=== PATIENT | female | born 1960 | race Hispanic/Latino ===

== ENCOUNTER 2016-07-31 11:55 | Outpatient (CLI) | payer BC ==
[2016-07-31 12:03] LABS: Hematocrit 40.3 % (30.3-42.9); Hemoglobin 13.9 gm/dl (10.1-14.3); Mean Corpuscular HGB Conc 35 % (30-34); Mean Corpuscular Hemoglobin 32 pg (28-32); Mean Corpuscular Volume 93 fl (79-97); Red Blood Count 4.33 M/mm3 (3.65-5.03); Red Cell Distribution Width 12.8 % (13.2-15.2); White Blood Count 9.7 K/mm3 (4.5-11.0)
[2016-07-31 12:04] LABS: Platelet Count 216 K/mm3 (140-440)
[2016-07-31 12:20] LABS: Alanine Aminotransferase 16 units/L (7-56); Albumin 3.8 g/dL (3.9-5); Albumin/Globulin Ratio 1.5 %; Alkaline Phosphatase 85 units/L (35-129); Bilirubin,Total 0.4 mg/dL (0.1-1.2); Blood Urea Nitrogen 11 mg/dL (7-17); Calcium 8.8 mg/dL (8.4-10.2); Carbon Dioxide 25 mmol/L (22-30); Cholesterol 168 mg/dL (50-199); Glucose 94 mg/dL (65-100); HDL Cholesterol 57 mg/dL (40-59); LDL Cholesterol,Direct 90 mg/dL (50-130); Total Protein 6.4 g/dL (6.3-8.2); Triglycerides 106 mg/dL (2-149)
[2016-07-31 12:21] LABS: Anion Gap 15 mmol/L; Chloride 102.1 mmol/L (98-107); Sodium 138 mmol/L (137-145)
[2016-08-03 17:47] LABS: Vitamin D, 25-OH, Total 17 ng/mL (30-100)
== END 2016-07-31 11:56 | disposition home or self-care (01) ==
LOC: LAB 11:55
PROVIDERS: ATTEND Internal Medicine
DX: D64.9 Anemia, unspecified (principal); E55.9 Vitamin D deficiency, unspecified; E03.9 Hypothyroidism, unspecified; E78.1 Pure hyperglyceridemia
CPT/HCPCS: 36415; 80053; 80061; 82306; 82607; 82747; 83735; 84443; 85027

== ENCOUNTER 2017-07-16 19:38 | Emergency (ER) | payer BC ==
[2017-07-16 19:45] VITALS: BP 155/72
[2017-07-16] MEDS ORDERED: BOOSTRIX IM ONE (20:56)
[2017-07-16] MEDS ORDERED: TYLENOL #3 PO ONE (20:56)
[2017-07-16] MEDS ORDERED: XYLOCAINE 1% 20 mL INFILTRATI ONE (21:00)
--- NOTE | 2017-07-16 21:00 | Emergency Department Report ---
Chief Complaint: Laceration/Recheck/Suture Stated Complaint: LEFT HAND LACERATION Time Seen by Provider: 07/16/17 20:56 - HPI History of Present Illness: The patient is a 56-year-old female who presents for evaluation of laceration. The patient reports cutting her left thumb with a knife accidentally while attempting to cut a hole in a plastic container, 2-3 hours prior to arrival. She has experienced mild stinging in quality pain to the wound site since the incident, exacerbated with movement of the thumb. She is unsure of last known tetanus immunization. - Exam Vital Signs: Vital Signs 07/16/17 19:42 Temperature 98.1 F Pulse Rate 62 Respiratory 16 Rate Blood Pressure 155/72 O2 Sat by Pulse 99 Oximetry MSE screening note: Focused history and physical exam performed. Due to findings the following was ordered: ED Disposition for MSE Condition: Stable Referrals: ISAAC BAIRD MD [Primary Care Provider] - 3-5 Days
[2017-07-16] MEDS ORDERED: TRIPLE ANTIBIOTIC TP ONE ×2 (21:03→21:24)
[2017-07-16] MEDS ORDERED: XYLOCAINE 2% INFILTRATI ONE (21:03)
--- NOTE | 2017-07-16 22:00 | Emergency Department Report ---
ED Laceration HPI - HPI Chief Complaint: Laceration/Recheck/Suture Stated Complaint: LEFT HAND LACERATION Time Seen by Provider: 07/16/17 20:56 Occurred When: Today Location: Upper Extremity (left thumb distal to web space) Tetanus Status: Not up to Date Laceration Symptoms: Yes Pain, No Foreign Body Sensation, No Numbness, No Weakness Other History: 56-year-old female presents with accidental laceration to the left inner thumb region. Patient states she was cutting open a box with a kitchen knife kitchen knife slipped and lacerated her left thumb. Patient unaware of tetanus status. Laceration not currently bleeding. Visible one- inch laceration to left inner thumb region near webspace. No other injury sustained. Occurred 1 hour ago ED Review of Systems ROS: Stated complaint: LEFT HAND LACERATION Other details as noted in HPI Constitutional: denies: chills, fever Eyes: denies: eye pain, eye discharge, vision change ENT: denies: ear pain, throat pain Respiratory: denies: cough, shortness of breath, wheezing Cardiovascular: denies: chest pain, palpitations Endocrine: no symptoms reported Gastrointestinal: denies: abdominal pain, nausea, diarrhea Genitourinary: denies: urgency, dysuria, discharge Musculoskeletal: denies: back pain, joint swelling, arthralgia Skin: denies: rash, lesions Neurological: denies: headache, weakness, paresthesias Psychiatric: denies: anxiety, depression Hematological/Lymphatic: denies: easy bleeding, easy bruising ED Past Medical Hx - Past Medical History Previous Medical History?: Yes Hx Hypertension: Yes - Surgical History Past Surgical History?: Yes Hx Cholecystectomy: Yes Additional Surgical History: hysterectomy - Social History Smoking Status: Never Smoker Substance Use Type: None - Medications Home Medications: Home Medications Medication Instructions Recorded Confirmed Last Taken Type Acetaminophen/Codeine [Tylenol 1 tab PO Q6H PRN #8 tab 07/16/17 Unknown Rx /Codeine # 3 tab] Cephalexin [Keflex] 500 mg PO Q12HR #10 cap 07/16/17 Unknown Rx Ibuprofen [Motrin] 800 mg PO Q8HR PRN #20 tablet 07/16/17 Unknown Rx Laceration Physical Exam - Exam General: Vital signs noted. No distress. Alert and acting appropriately. Wound Length (cm): 2 Laceration Location: Upper Extremity (left inner thumb) Laceration Exam: Yes Normal Distal CMS (distal capillary refill less than 1 second), No Foreign Body, No Exposed Tendon, Vessel, or Nerve, No Tendon Injury ED Course Vital Signs 07/16/17 07/16/17 19:42 21:24 Temperature 98.1 F Pulse Rate 62 Respiratory 16 18 Rate Blood Pressure 155/72 O2 Sat by Pulse 99 Oximetry - Laceration /Wound Repair Left Finger Wound Location: upper extremity (left inner thumb region) Wound Length (cm): 2 Wound's Depth, Shape: linear Irrigated w/ Saline (ccs): 1,000 Anesthesia: 1% Lidocaine Volume Anesthetic (ccs): 4 Wound Debrided: minimal Wound Repaired With: sutures Suture Size/Type: 4:0, nylon Number of Sutures: 4 Layer Closure?: No ED Medical Decision Making - Medical Decision Making A/P: left inner thumb laceration 1-sutures to be removed in 7 days. Range of motion left thumb clinically intact , distal pulses intact distal capillary refill intact 2-tetanus updated today 3-Motrin when necessary, triple antibiotic ointment 4- pt advised to return to the ED for any fevers chills pus drainage erythema at site of laceration Critical care attestation.: If time is entered above; I have spent that time in minutes in the direct care of this critically ill patient, excluding procedure time. ED Disposition Clinical Impression: Laceration of left thumb Qualifiers: Encounter type: initial encounter Damage to nail status: without damage Foreign body presence: without foreign body Qualified Code(s): S61.012A - Laceration without foreign body of left thumb without damage to nail, initial encounter Disposition: TO HOME OR SELFCARE Is pt being admited?: No Does the pt Need Aspirin: No Condition: Stable Instructions: Finger Laceration (ED), Suture Care (ED), Laceration (ED) Prescriptions: Acetaminophen/Codeine [Tylenol /Codeine # 3 tab] 1 tab PO Q6H PRN #8 tab PRN Reason: Pain Cephalexin [Keflex] 500 mg PO Q12HR #10 cap Ibuprofen [Motrin] 800 mg PO Q8HR PRN #20 tablet PRN Reason: Pain Referrals: ISAAC BAIRD MD [Primary Care Provider] - 3-5 Days [facility] [Provider Group] - 3-5 Days Forms: Accompanied Note, Work/School Release Form(ED) Time of Disposition: 22:01
== END 2017-07-16 22:09 | disposition home or self-care (01) ==
LOC: ED 19:38
DX: S61.012A Laceration without foreign body of left thumb without damage to nail, initial encounter (principal); I10 Essential (primary) hypertension; W26.0XXA Contact with knife, initial encounter; Y93.89 Activity, other specified; Y92.89 Other specified places as the place of occurrence of the external cause; Y99.8 Other external cause status
CPT/HCPCS: 90471; 90715; 99282; A6250

== ENCOUNTER 2017-12-30 11:21 | Outpatient (CLI) | payer BC ==
--- NOTE | 2017-12-31 14:23 | Mammography Report ---
BILATERAL DIGITAL AUGMENTED SCREENING MAMMOGRAM with CAD: 12/30/17 11:21:00 CLINICAL: Routine screening. COMPARISON:None available. FINDINGS: Screening views with and without implant displacement demonstrate heterogeneously dense breasts, which may obscure small masses. Scattered bilateral benign calcifications. No mass, architectural distortion or suspicious calcifications. Intact subpectoral implants. IMPRESSION: No mammographic evidence of malignancy. BI-RADS CATEGORY: 2 -- Benign RECOMMENDATION: Routine mammographic screening in one year. ACR BI-RADS MAMMOGRAPHIC CODES: 0 = Needs additional imaging evaluation; 1 = Negative; 2 = Benign; 3 = Probably benign; 4 = Suspicious; 5 = Malignant; 6 = Known biopsy-proven malignancy COMMENT: 1. Dense breast tissue, i.e., adenosis, fibrocystic changes, etc., may obscure an underlying neoplasm. 2. Approximately 10% of cancers are not detected with mammography. 3. A negative mammography report should not delay biopsy if a clinically suspicious mass is present. COMMENT: Patient follow-up letters are generated via our [employer] application.
== END 2017-12-30 11:22 | disposition home or self-care (01) ==
LOC: MAMMO 11:21
PROVIDERS: ATTEND Obstetrics & Gynecology
DX: Z12.31 Encounter for screening mammogram for malignant neoplasm of breast (principal); I10 Essential (primary) hypertension; Z90.49 Acquired absence of other specified parts of digestive tract
CPT/HCPCS: 77067

== ENCOUNTER 2019-04-25 08:03 | Emergency (ER) | payer BC ==
--- NOTE | 2019-04-25 09:08 | XRay Report ---
CHEST PA AND LATERAL VIEWS INDICATION: upper respiratory infection. COMPARISON: 08/29/2017. FINDINGS: Support devices: None. Heart: Within normal limits. Lungs/Pleura: Within the right lower lung, there is mild peribronchovascular interstitial disease whi ch could be due to focal lower airways disease. On the PA view within the right mid to upper lung, th ere is a 7 mm nodular density. This was not clearly seen on the prior. Left lung is clear. No pleural effusion. IMPRESSION: 1. Probable lower airways disease in the right lower lung. 2. 7 mm nodular density projecting over the right mid to upper lung on the PA view. This could be an artifact. If this persists on follow-up radiographs in 2-4 weeks, cross-sectional imaging should be c onsidered. Signer Name: Dre Sagastume MD Signed: 04/25/2019 9:03 AM Workstation Name: [id number]
--- NOTE | 2019-04-25 09:32 | Emergency Department Report ---
- General Chief Complaint: Upper Respiratory Infection Stated Complaint: FLU LIKE SYMPTOMS Time Seen by Provider: 04/25/19 09:30 Source: patient Mode of arrival: Ambulatory Limitations: No Limitations - History of Present Illness Initial Comments: pt is a 58 yo female who presents to the ED for URI symptoms that began 5 days ago. she has associated productive cough, subjective fever, congestion, rhinorrhea. she denies any sore throat, ear ache, SOB, CP. she states that her said she has a mild wheeze at night. PMHx HTN, did not take her BP medication this morning she takes lisinopril and nadolol. allergy: pencillin. - Related Data Home Medications Medication Instructions Recorded Confirmed Last Taken Aspirin [Aspirin BABY CHEW TAB] 81 mg PO QDAY 08/29/17 08/29/17 Unknown Fluticasone [Flonase] 2 spray NS QDAY 08/29/17 08/29/17 Unknown Furosemide [Lasix TAB] 20 mg PO QDAY 08/29/17 08/29/17 Unknown Glucosamine/D3/Boswellia Jayla 1 each PO QDAY 08/29/17 08/29/17 Unknown [Glucosamine Daily Complex Tab] Multivitamin [Multiple Vitamins] 1 each PO QDAY 08/29/17 08/29/17 Unknown Nadolol [Corgard] 20 mg PO QDAY 08/29/17 08/29/17 Unknown Pantoprazole [Protonix TAB] 40 mg PO QDAY 08/29/17 08/29/17 Unknown lisinopriL [Zestril TAB] 20 mg PO QDAY 08/29/17 08/29/17 Unknown Previous Rx's Medication Instructions Recorded Last Taken Type Acetaminophen/Codeine [Tylenol 1 tab PO Q6H PRN #8 tab 07/16/17 Unknown Rx /Codeine # 3 tab] ALBUTEROL Inhaler (OR & NICU) 2 puff IH QID PRN #8.5 gram 04/25/19 Unknown Rx [ProAir HFA Inhaler] Azithromycin [Zithromax TAB] 250 mg PO QDAY 5 Days #6 tablet 04/25/19 Unknown Rx Benzonatate [Tessalon Perles] 100 mg PO Q8HR PRN #12 capsule 04/25/19 Unknown Rx Prednisone [predniSONE 10 mg 10 mg PO .TAPER #1 tab.ds.pk 04/25/19 Unknown Rx (6-Day Pack, 21 Tabs)] Allergies Allergy/AdvReac Type Severity Reaction Status Date / Time Penicillins Allergy Hives Verified 07/16/17 19:42 ED Review of Systems ROS: Stated complaint: FLU LIKE SYMPTOMS Other details as noted in HPI Comment: All other systems reviewed and negative ED Past Medical Hx - Past Medical History Previous Medical History?: Yes Hx Hypertension: Yes Additional medical history: mitral valve prolapse, GERD - Surgical History Past Surgical History?: Yes Hx Cholecystectomy: Yes Additional Surgical History: hysterectomy, tummy tuck breasst lift - Social History Smoking Status: Never Smoker Substance Use Type: None - Medications Home Medications: Home Medications Medication Instructions Recorded Confirmed Last Taken Type Acetaminophen/Codeine [Tylenol 1 tab PO Q6H PRN #8 tab 07/16/17 08/29/17 Unknown Rx /Codeine # 3 tab] Aspirin [Aspirin BABY CHEW TAB] 81 mg PO QDAY 08/29/17 08/29/17 Unknown History Fluticasone [Flonase] 2 spray NS QDAY 08/29/17 08/29/17 Unknown History Furosemide [Lasix TAB] 20 mg PO QDAY 08/29/17 08/29/17 Unknown History Glucosamine/D3/Boswellia Jayla 1 each PO QDAY 08/29/17 08/29/17 Unknown History [Glucosamine Daily Complex Tab] Multivitamin [Multiple Vitamins] 1 each PO QDAY 08/29/17 08/29/17 Unknown History Nadolol [Corgard] 20 mg PO QDAY 08/29/17 08/29/17 Unknown History Pantoprazole [Protonix TAB] 40 mg PO QDAY 08/29/17 08/29/17 Unknown History lisinopriL [Zestril TAB] 20 mg PO QDAY 08/29/17 08/29/17 Unknown History ALBUTEROL Inhaler (OR & NICU) 2 puff IH QID PRN #8.5 gram 04/25/19 Unknown Rx [ProAir HFA Inhaler] Azithromycin [Zithromax TAB] 250 mg PO QDAY 5 Days #6 tablet 04/25/19 Unknown Rx Benzonatate [Tessalon Perles] 100 mg PO Q8HR PRN #12 capsule 04/25/19 Unknown Rx Prednisone [predniSONE 10 mg 10 mg PO .TAPER #1 tab.ds.pk 04/25/19 Unknown Rx (6-Day Pack, 21 Tabs)] ED Physical Exam - General Limitations: No Limitations General appearance: alert, in no apparent distress - Head Head exam: Present: atraumatic, normocephalic - Eye Eye exam: Present: normal appearance - ENT ENT exam: Present: mucous membranes moist - Respiratory Respiratory exam: Present: normal lung sounds bilaterally. Absent: respiratory distress, wheezes, rales, rhonchi, stridor, chest wall tenderness, accessory muscle use, decreased breath sounds, prolonged expiratory - Cardiovascular Cardiovascular Exam: Present: regular rate, normal rhythm, normal heart sounds. Absent: systolic murmur, diastolic murmur, rubs, gallop - Neurological Exam Neurological exam: Present: alert, oriented X3 - Psychiatric Psychiatric exam: Present: normal affect, normal mood - Skin Skin exam: Present: warm, dry, intact ED Course Vital Signs 04/25/19 04/25/19 08:05 09:45 Temperature 99.7 F H Pulse Rate 102 H 94 H Respiratory 20 18 Rate Blood Pressure 171/100 Blood Pressure 157/93 [Right] O2 Sat by Pulse 94 96 Oximetry ED Medical Decision Making - Radiology Data Radiology results: report reviewed CXR: probable lower airway disease in the right lower lung 7 millimeter nodular density right mid upper lung could be artifact recommended repeat x-ray in 2-4 weeks. - Medical Decision Making pt is a 58 yo female who presents to the ED for URI symptoms that began 5 days ago. she has associated productive cough, subjective fever, congestion, rhinorrhea. she denies any sore throat, ear ache, SOB, CP. she states that her said she has a mild wheeze at night. PMHx HTN, did not take her BP medication this morning she takes lisinopril and nadolol. allergy: pencillin. vitals with low grade temp, tachycardia, and elevated HR, improved upon repeat. CXR: probable lower airway disease in the right lower lung. 7 millimeter nodular density right mid upper lung could be artifact recommended repeat x-ray in 2-4 weeks. pt given prescription for prednisone and Zithromax Tessalon Perles and albuterol inhaler. discussed XR findings with pt and answered questions. advised pt please take medication as prescribed. increase your fluid intake over the next several days. please follow up with a primary care doctor in the next 2-3 days. return to the emergency room for any new or worsening symptoms. please follow up in 2-4 weeks for a repeat XR due to incidental lung nodule on x-ray today. - Differential Diagnosis PNA, URI, bronchitis, Influenza, viral syndrome Critical care attestation.: If time is entered above; I have spent that time in minutes in the direct care of this critically ill patient, excluding procedure time. ED Disposition Clinical Impression: Incidental lung nodule, > 3mm and < 8mm Pneumonia Qualifiers: Pneumonia type: due to unspecified organism Laterality: right Lung location: middle lobe of lung Qualified Code(s): J18.9 - Pneumonia, unspecified organism Disposition: - TO HOME OR SELFCARE Is pt being admited?: No Does the pt Need Aspirin: No Condition: Stable Instructions: Bacterial Pneumonia (ED) Additional Instructions: please take medication as prescribed. increase your fluid intake over the next several days. please follow up with a primary care doctor in the next 2-3 days. return to the emergency room for any new or worsening symptoms. please follow up in 2-4 weeks for a repeat XR due to incidental lung nodule on x-ray today. Prescriptions: Prednisone [predniSONE 10 mg (6-Day Pack, 21 Tabs)] 10 mg PO .TAPER #1 tab.ds.pk ALBUTEROL Inhaler (OR & NICU) [ProAir HFA Inhaler] 2 puff IH QID PRN #8.5 gram PRN Reason: Shortness Of Breath Benzonatate [Tessalon Perles] 100 mg PO Q8HR PRN #12 capsule PRN Reason: cough Azithromycin [Zithromax TAB] 250 mg PO QDAY 5 Days #6 tablet Referrals: EDGARDO SMITH MD [Staff Physician] - 2-3 Days Forms: Work/School Release Form(ED) Time of Disposition: 09:40 Print Language: FILIPINO
[2019-04-25 09:52] VITALS: BP 157/93
== END 2019-04-25 10:11 | disposition home or self-care (01) ==
LOC: ED 08:03
DX: J18.9 Pneumonia, unspecified organism (principal); R91.1 Solitary pulmonary nodule; I10 Essential (primary) hypertension; K21.9 Gastro-esophageal reflux disease without esophagitis; Z88.8 Allergy status to other drugs, medicaments and biological substances; Z90.710 Acquired absence of both cervix and uterus; Z90.49 Acquired absence of other specified parts of digestive tract; Z79.899 Other long term (current) drug therapy
CPT/HCPCS: 71046

== ENCOUNTER 2019-05-11 09:39 | Outpatient (CLI) | payer BC ==
--- NOTE | 2019-05-11 10:33 | Cat Scan Report ---
CT CHEST WITHOUT CONTRAST INDICATION : ABNORMAL FINDING IN CXR/RUL NODULE. A right 7 mm upper lobe nodule as described on a chest x-ray. She had a URI at the time of the chest x-ray. TECHNIQUE: Axial imaging performed through the chest without the use of intravenous contrast. All C T scans at this location are performed using CT dose reduction for ALARA by means of automated exposu re control. COMPARISON: 04/25/2019 and 08/29/2017 chest x-rays. FINDINGS: Several (at least 3) the largest subtle patchy ground grass opacities of the right upper l obe that are irregular in shape and have ill-defined margins. The largest measures 18 mm. No lung nod ule or mass of the right upper lobe. A noncalcified nodular opacity of the right lower lobe at the co stophrenic angle measures 16 mm diameter. It has a nodular shape on axial imaging but has more of a w edge-shaped on coronal imaging. There are subtle adjacent interstitial opacities in the right lower l obe. No other lung nodule or mass. No pleural effusion. Normal heart, aorta and pulmonary vasculature . Normal mediastinum. No lymphadenopathy. Bilateral intact breast implants. The upper abdomen is jamar rkable for surgical clips in the gallbladder fossa and a 19 mm right adrenal adenoma. IMPRESSION: 1. Subtle patchy groundglass opacities of the right upper lobe which may be residual pneumonia. 2. No right upper lobe lung nodule. 3. A 16 mm right lower lobe lung opacity of uncertain etiology. This may also represent residual pneu monia of the right lower lobe. 4. A benign 19 mm right adrenal adenoma. 5. Status post cholecystectomy. 6. Recommend 6 month follow-up CT chest to reevaluate the right upper lobe and the right lower lobe l homa opacities. Signer Name: Yasmany Aviles MD Signed: 05/11/2019 10:28 AM Workstation Name: [id number]
== END 2019-05-11 09:40 | disposition home or self-care (01) ==
LOC: CT 09:39
PROVIDERS: ATTEND Internal Medicine
DX: J98.4 Other disorders of lung (principal); R91.8 Other nonspecific abnormal finding of lung field
CPT/HCPCS: 71250

== ENCOUNTER 2019-06-20 10:07 | Emergency (ER) | payer OTHER, BC ==
[2019-06-20 10:17] VITALS: BP 148/91
--- NOTE | 2019-06-20 10:47 | XRay Report ---
LEFT ANKLE 3 VIEWS INDICATION: Trauma/pain. COMPARISON: None. IMPRESSION: There is moderate diffuse soft tissue swelling or edema. Normal bone mineralization. No acute osseous findings or joint pathology is identified. LEFT FOOT 3 VIEWS INDICATION: Trauma/pain. COMPARISON: None. IMPRESSION: There is severe distal soft tissue swelling or edema. Normal bone mineralization. No ac [place] osseous injury or significant joint pathology is identified. Large plantar spur is noted. Signer Name: Carlos Hoskins Jr, MD Signed: 06/20/2019 10:42 AM Workstation Name: [id number]
--- NOTE | 2019-06-20 10:47 | XRay Report ---
LEFT ANKLE 3 VIEWS INDICATION: Trauma/pain. COMPARISON: None. IMPRESSION: There is moderate diffuse soft tissue swelling or edema. Normal bone mineralization. No acute osseous findings or joint pathology is identified. LEFT FOOT 3 VIEWS INDICATION: Trauma/pain. COMPARISON: None. IMPRESSION: There is severe distal soft tissue swelling or edema. Normal bone mineralization. No ac [place] osseous injury or significant joint pathology is identified. Large plantar spur is noted. Signer Name: Carlos Hoskins Jr, MD Signed: 06/20/2019 10:42 AM Workstation Name: [id number]
--- NOTE | 2019-06-20 11:34 | Emergency Department Report ---
ED Lower Extremity HPI - General Chief Complaint: Extremity Injury, Lower Stated Complaint: WORK PLACE INJURY, SHELVES FELL ON FOOT Time Seen by Provider: 06/20/19 11:02 Source: patient Mode of arrival: Wheelchair Limitations: No Limitations - History of Present Illness Initial Comments: Patient is a 58-year-old female presents emergency room with complaints of a left foot and ankle injury that occurred around 8:30 AM this morning. She states that she dropped a 75 pound shelf across her left foot and ankle. She states that she mostly has pain in her left foot. She states she then began to have swelling across the left foot and into the left ankle. She states that she has not been ambulatory since the incident. She states that her only prior injury to this foot is a broken toe several years ago. She has a past medical history of hypertension and MVP. She has an allergy to penicillin. - Related Data Home Medications Medication Instructions Recorded Confirmed Last Taken Aspirin [Aspirin BABY CHEW TAB] 81 mg PO QDAY 08/29/17 08/29/17 Unknown Fluticasone [Flonase] 2 spray NS QDAY 08/29/17 08/29/17 Unknown Furosemide [Lasix TAB] 20 mg PO QDAY 08/29/17 08/29/17 Unknown Glucosamine/D3/Boswellia Jayla 1 each PO QDAY 08/29/17 08/29/17 Unknown [Glucosamine Daily Complex Tab] Multivitamin [Multiple Vitamins] 1 each PO QDAY 08/29/17 08/29/17 Unknown Pantoprazole [Protonix TAB] 40 mg PO QDAY 08/29/17 08/29/17 Unknown lisinopriL [Zestril TAB] 20 mg PO QDAY 08/29/17 08/29/17 Unknown nadoloL [Corgard] 20 mg PO QDAY 08/29/17 08/29/17 Unknown Previous Rx's Medication Instructions Recorded Last Taken Type Acetaminophen/Codeine [Tylenol 1 tab PO Q6H PRN #8 tab 07/16/17 Unknown Rx /Codeine # 3 tab] Albuterol INH(or & Nicu Only) 2 puff IH QID PRN #8.5 gram 04/25/19 Unknown Rx [ProAir HFA Inhaler] Azithromycin [Zithromax TAB] 250 mg PO QDAY 5 Days #6 tablet 04/25/19 Unknown Rx Benzonatate [Tessalon Perles] 100 mg PO Q8HR PRN #12 capsule 04/25/19 Unknown Rx Prednisone [predniSONE 10 mg 10 mg PO .TAPER #1 tab.ds.pk 04/25/19 Unknown Rx (6-Day Pack, 21 Tabs)] Naproxen [EC-Naproxen] 375 mg PO BID PRN #14 tablet. 06/20/19 Unknown Rx traMADoL [Ultram 50 MG tab] 50 mg PO Q6HR PRN #10 tablet 06/20/19 Unknown Rx Allergies Allergy/AdvReac Type Severity Reaction Status Date / Time Penicillins Allergy Hives Verified 07/16/17 19:42 ED Review of Systems ROS: Stated complaint: WORK PLACE INJURY, SHELVES FELL ON FOOT Other details as noted in HPI Comment: All other systems reviewed and negative ED Past Medical Hx - Past Medical History Previous Medical History?: Yes Hx Hypertension: Yes Additional medical history: mitral valve prolapse, GERD - Surgical History Past Surgical History?: Yes Hx Cholecystectomy: Yes Additional Surgical History: hysterectomy, tummy tuck breasst lift - Social History Smoking Status: Never Smoker Substance Use Type: None - Medications Home Medications: Home Medications Medication Instructions Recorded Confirmed Last Taken Type Acetaminophen/Codeine [Tylenol 1 tab PO Q6H PRN #8 tab 07/16/17 08/29/17 Unknown Rx /Codeine # 3 tab] Aspirin [Aspirin BABY CHEW TAB] 81 mg PO QDAY 08/29/17 08/29/17 Unknown History Fluticasone [Flonase] 2 spray NS QDAY 08/29/17 08/29/17 Unknown History Furosemide [Lasix TAB] 20 mg PO QDAY 08/29/17 08/29/17 Unknown History Glucosamine/D3/Boswellia Jayla 1 each PO QDAY 08/29/17 08/29/17 Unknown History [Glucosamine Daily Complex Tab] Multivitamin [Multiple Vitamins] 1 each PO QDAY 08/29/17 08/29/17 Unknown History Pantoprazole [Protonix TAB] 40 mg PO QDAY 08/29/17 08/29/17 Unknown History lisinopriL [Zestril TAB] 20 mg PO QDAY 08/29/17 08/29/17 Unknown History nadoloL [Corgard] 20 mg PO QDAY 08/29/17 08/29/17 Unknown History Albuterol INH(or & Nicu Only) 2 puff IH QID PRN #8.5 gram 04/25/19 Unknown Rx [ProAir HFA Inhaler] Azithromycin [Zithromax TAB] 250 mg PO QDAY 5 Days #6 tablet 04/25/19 Unknown Rx Benzonatate [Tessalon Perles] 100 mg PO Q8HR PRN #12 capsule 04/25/19 Unknown Rx Prednisone [predniSONE 10 mg 10 mg PO .TAPER #1 tab.ds.pk 04/25/19 Unknown Rx (6-Day Pack, 21 Tabs)] Naproxen [EC-Naproxen] 375 mg PO BID PRN #14 tablet.dr 06/20/19 Unknown Rx traMADoL [Ultram 50 MG tab] 50 mg PO Q6HR PRN #10 tablet 06/20/19 Unknown Rx ED Physical Exam - General Limitations: No Limitations General appearance: alert, in no apparent distress - Head Head exam: Present: atraumatic, normocephalic - Eye Eye exam: Present: normal appearance - ENT ENT exam: Present: mucous membranes moist - Extremities Exam Extremities exam: Present: other (ttp over the left lateral foot with ecchymosis present, there is edema present to the left foot and ankle, no ttp of the left ankle, no ttp over the bilateral malleoli, FROM of the left ankle without difficulty or pain, FROM of the left foot with pain with flexion and extension, no obvious deformity, sensation intact, able to move the toes, doppler used and pulses are strong and intact in the distal left leg, compartments are soft) - Neurological Exam Neurological exam: Present: alert, oriented X3 - Psychiatric Psychiatric exam: Present: normal affect, normal mood - Skin Skin exam: Present: warm, dry, intact ED Course Vital Signs 06/20/19 10:14 Temperature 98.2 F Respiratory 20 Rate Blood Pressure 148/91 ED Lower Extremity MDM - Radiology Data Radiology results: report reviewed LEFT ANKLE 3 VIEWS INDICATION: Trauma/pain. COMPARISON: None. IMPRESSION: There is moderate diffuse soft tissue swelling or edema. Normal bone mineralization. No acute osseous findings or joint pathology is identified. LEFT FOOT 3 VIEWS INDICATION: Trauma/pain. COMPARISON: None. IMPRESSION: There is severe distal soft tissue swelling or edema. Normal bone mineralization. No acute osseous injury or significant joint pathology is identified. Large plantar spur is noted. Signer Name: Carlos Brennan Jr, MD Signed: 06/20/2019 10:42 AM Workstation Name: [id number] Transcribed By: TTR Dictated By: CARLOS BRENNAN JR, MD Electronically Authenticated By: CARLOS BRENNAN JR, MD Signed Date/Time: 06/20/19 104 DD/ 1041 TD/TT: - Medical Decision Making Patient is a 58-year-old female presents emergency room with complaints of a left foot and ankle injury that occurred around 8:30 AM this morning. She states that she dropped a 75 pound shelf across her left foot and ankle. She states that she mostly has pain in her left foot. She states she then began to have swelling across the left foot and into the left ankle. She states that she has not been ambulatory since the incident. She states that her only prior injury to this foot is a broken toe several years ago. She has a past medical history of hypertension and MVP. She has an allergy to penicillin. vss. on exam: ttp over the left lateral foot with ecchymosis present, there is edema pr esent to the left foot and ankle, no ttp of the left ankle, no ttp over the bilateral malleoli, FROM of the left ankle without difficulty or pain, FROM of the left foot with pain with flexion and extension, no obvious deformity, sensation intact, able to move the toes, doppler used and pulses are strong and intact in the distal left leg, compartments are soft. xr left ankle: There is moderate diffuse soft tissue swelling or edema. Normal bone mineralization. No acute osseous findings or joint pathology is identified. XR left foot: There is severe distal soft tissue swelling or edema. Normal bone mineralization. No acute osseous injury or significant joint pathology is identified. Large plantar spur is noted. Patient placed in postop shoe and given crutches. examination consistent with foot sprain/contusion. Given prescription for tramadol and naproxen. advised pt to Please take medication as prescribed as needed. Do not drive or operate heavy machinery while taking pain medication. May use ice for 15 minutes at a time, rest, elevation of the leg. Follow-up with orthopedic doctor in the next 2 to 3 days. Please do not bear weight until you have been cleared by the orthopedic doctor. Return to the emergency room for any new or worsening symptoms. - Differential Diagnosis strain, sprain, fx, dislocation Critical care attestation.: If time is entered above; I have spent that time in minutes in the direct care of this critically ill patient, excluding procedure time. ED Disposition Clinical Impression: Left foot pain Sprain of left foot Qualifiers: Encounter type: initial encounter Qualified Code(s): S93.602A - Unspecified sprain of left foot, initial encounter Disposition: TO HOME OR SELFCARE Is pt being admited?: No Does the pt Need Aspirin: No Condition: Stable Instructions: Foot Sprain (ED) Additional Instructions: Please take medication as prescribed as needed. Do not drive or operate heavy machinery while taking pain medication. May use ice for 15 minutes at a time, rest, elevation of the leg. Follow-up with orthopedic doctor in the next 2 to 3 days. Please do not bear weight until you have been cleared by the orthopedic doctor. Return to the emergency room for any new or worsening symptoms. Prescriptions: Naproxen [EC-Naproxen] 375 mg PO BID PRN #14 tablet.dr PRN Reason: Pain, Moderate (4-6) traMADoL [Ultram 50 MG tab] 50 mg PO Q6HR PRN #10 tablet PRN Reason: Pain , Severe (7-10) Referrals: DELORES WILSON MD [Staff Physician] - 2-3 Days Time of Disposition: 11:34 Print Language: MARTINIQUAIS
== END 2019-06-20 12:20 | disposition home or self-care (01) ==
LOC: ED 10:07
DX: S93.602A Unspecified sprain of left foot, initial encounter (principal); I10 Essential (primary) hypertension; K21.9 Gastro-esophageal reflux disease without esophagitis; Z90.49 Acquired absence of other specified parts of digestive tract; Z90.710 Acquired absence of both cervix and uterus; Z88.0 Allergy status to penicillin; X58.XXXA Exposure to other specified factors, initial encounter; Y93.89 Activity, other specified; Y92.89 Other specified places as the place of occurrence of the external cause; Y99.8 Other external cause status

== ENCOUNTER 2019-08-22 10:00 | Outpatient (CLI) | payer BC, OTHER ==
--- NOTE | 2019-08-22 11:17 | Cat Scan Report ---
CT chest wo con INDICATION / CLINICAL INFORMATION: RUL NODULE/ABNORMAL FINDING ON CXR. TECHNIQUE: All CT scans at this location are performed using CT dose reduction for ALARA by means of automated e xposure control. COMPARISON: 05/11/2019 FINDINGS: Patchy groundglass opacity in the right upper lobe has resolved since prior study. The nodule seen in the right lower lobe has also resolved. No new parenchymal abnormality is seen. No enlarged mediasti nal or hilar lymph nodes are identified. Right adrenal nodule is unchanged. Other than degenerative c hange in the spine, no significant skeletal abnormality is seen. Bilateral breast implants are presen t. IMPRESSION: 1. Patchy groundglass opacity in the right upper lobe and right lower lobe pulmonary nodule have reso lved since prior study dated 05/11/2019. On today's examination, there are no acute findings 2. Bilateral breast implants Signer Name: Preston Morton MD FACR Signed: 08/22/2019 11:12 AM Workstation Name: [id number]
== END 2019-08-22 10:01 | disposition home or self-care (01) ==
LOC: CT 10:00
PROVIDERS: ATTEND Internal Medicine
DX: R91.1 Solitary pulmonary nodule (principal); J98.4 Other disorders of lung
CPT/HCPCS: 71250

== ENCOUNTER 2021-04-09 11:20 | Outpatient (CLI) | payer BC ==
--- NOTE | 2021-04-09 13:52 | XRay Report ---
CHEST 2 VIEWS INDICATION / CLINICAL INFORMATION: SHORTNESS OF BREATH. COMPARISON: 04/25/2019. FINDINGS: SUPPORT DEVICES: None. HEART / MEDIASTINUM: No significant abnormality. LUNGS / PLEURA: No significant pulmonary or pleural abnormality. No pneumothorax. ADDITIONAL FINDINGS: No significant additional findings. IMPRESSION: 1. No acute findings. Signer Name: Eduardo Seo MD Signed: 04/09/2021 1:47 PM Workstation Name: [id number]
== END 2021-04-09 11:21 | disposition home or self-care (01) ==
LOC: XRAY 11:20
PROVIDERS: ATTEND Internal Medicine
DX: R06.02 Shortness of breath (principal)
CPT/HCPCS: 71046

== ENCOUNTER 2021-04-24 09:56 | Outpatient (CLI) | payer BC ==
[2021-04-24 10:28] LABS: Basophils % (Auto) 0.6 % (0.0-1.8); Eosinophils # (Auto) 0.1 K/mm3 (0.0-0.4); Eosinophils % (Auto) 1.4 % (0.0-4.3); Hematocrit 42.7 % (30.3-42.9); Hemoglobin 14.3 gm/dl (10.1-14.3); Lymphocytes # (Auto) 1.5 K/mm3 (1.2-5.4); Lymphocytes % (Auto) 31.8 % (13.4-35.0); Mean Corpuscular HGB Conc 34 % (30-34); Mean Corpuscular Volume 95 fl (79-97); Monocytes # (Auto) 0.3 K/mm3 (0.0-0.8); Monocytes % (Auto) 6.3 % (0.0-7.3); Platelet Count 215 K/mm3 (140-440); Red Blood Count 4.51 M/mm3 (3.65-5.03); Red Cell Distribution Width 13.5 % (13.2-15.2)
[2021-04-24 10:46] LABS: Alanine Aminotransferase 44 units/L (7-56); Albumin 4.2 g/dL (3.9-5); BUN/Creatinine Ratio 15; Blood Urea Nitrogen 9 mg/dL (7-17); Calcium 8.9 mg/dL (8.4-10.2); Chol/HDL Ratio 4.12 %; HDL Cholesterol 49 mg/dL (40-59); Hemolysis Index 10; LDL Cholesterol,Direct 145 mg/dL (50-130)
[2021-04-24 10:59] LABS: Bilirubin,Urine NEG (Negative); Blood,Urine NEG (Negative); Color,Urine Yellow (Yellow); Mucus,Urine FEW /HPF; Protein,Urine <15 mg/dL mg/dL (Negative); Urobilinogen,Urine < 2.0 mg/dL (<2.0)
[2021-04-24 11:06] LABS: Erythrocyte Sedimentation Rate 4 mm/Hr (0-20)
== END 2021-04-24 09:57 | disposition home or self-care (01) ==
LOC: LAB 09:56
PROVIDERS: ATTEND Internal Medicine
DX: Z00.00 Encounter for general adult medical examination without abnormal findings (principal); R73.9 Hyperglycemia, unspecified; E78.5 Hyperlipidemia, unspecified; E55.9 Vitamin D deficiency, unspecified; I10 Essential (primary) hypertension; R53.83 Other fatigue
CPT/HCPCS: 36415; 80053; 80061; 81001; 82306; 83036; 84443; 85025; 85652

== ENCOUNTER 2021-05-22 07:55 | Outpatient (CLI) | payer BC ==
--- NOTE | 2021-05-22 11:08 | Vascular Lab Report ---
DUPLEX DOPPLER LOWER EXTREMITY VEINS, BILATERAL INDICATION / CLINICAL INFORMATION: LOCALIZED SWELLING MASS/LUMP LOWER LIMB BILATERAL. TECHNIQUE: Duplex doppler imaging was performed through the veins of both lower extremities using deb ous compression and other maneuvers. Great and small saphenous veins were evaluated in the supine and upright/reverse Trendelenburg positions. Valsalva technique was used to evaluate for venous insuffic iency. COMPARISON: None available. FINDINGS: RIGHT LOWER EXTREMITY DVT (Y/N): No. LEFT LOWER EXTREMITY DVT (Y/N): No. RIGHT LOWER EXTREMITY : Great Saphenous Vein: Size (upright) & Reflux (Y/N) -[place]: 11 mm. Reflux = Y -Prox: 6 mm. Reflux = N - Mid: 3 mm. Reflux = N - Dist: 3 mm. Reflux = N LEFT LOWER EXTREMITY : Great Saphenous Vein: Size (supine/upright) & Reflux (Y/N) -[place]: 6 mm. Reflux = Y - Prox: 6 mm. Reflux = Y - Mid: 3 mm. Reflux = N - Dist: 2 mm. Reflux = N Additional findings: None. IMPRESSION: 1. No sonographic evidence for DVT. 2. Sonographic evidence of venous insufficiency bilaterally with reflux as above. Scribed by: Niya Alanis RDMS, RVT Scribed: 05/22/2021 9:46 AM I have reviewed the images, agree with this report, and edited this report as needed. Signer Name: Rogerio Thakkar MD Signed: 05/22/2021 11:04 AM Workstation Name: [facility]
== END 2021-05-22 07:56 | disposition home or self-care (01) ==
LOC: VAS 07:55
PROVIDERS: ATTEND Internal Medicine
DX: R22.43 Localized swelling, mass and lump, lower limb, bilateral (principal); I87.2 Venous insufficiency (chronic) (peripheral)
CPT/HCPCS: 93970

== ENCOUNTER 2021-10-01 12:55 | Outpatient (CLI) | payer BC | END 2021-10-01 12:56 | disposition home or self-care (01) | LOC: LAB 12:55 | PROVIDERS: ATTEND Obstetrics & Gynecology | DX: R30.0 Dysuria (principal) | CPT/HCPCS: 87076; 87086; 87186 ==